=== PATIENT | female | born 1965 | race Caucasian/White ===

== ENCOUNTER 2022-09-23 16:59 | Emergency (ER) | payer MEDICARE, MEDICAID ==
[2022-09-23] MEDS ORDERED: LORazepam 2 MG/ML SDV ONE (17:01)
[2022-09-23] MEDS ORDERED: Sodium Chloride 0.9% 2.5 ML Syringe FLUSH PRN (17:08)
[2022-09-23] MEDS ORDERED: Ondansetron 4 MG/2 ML SDV ONE (17:08)
[2022-09-23] MEDS ORDERED: Sodium Chloride 0.9% 1,000 ML IV ONE (17:08)
[2022-09-23] MEDS ORDERED: Ondansetron 4 MG/2 ML SDV IVPUSH ONE ×2 (17:08→18:05)
[2022-09-23] MEDS ORDERED: Sodium Chloride 0.9% 10 ML Syringe FLUSH PRN (17:08)
[2022-09-23] MEDS ORDERED: LORazepam 2 MG/ML SDV IVPUSH STA (17:14)
[2022-09-23 17:53] LABS: BLOOD UREA NITROGEN,BUN 14 mg/dL (7.0-18.0); CARBON DIOXIDE,CO2 11.5 mmol/L (21.0-32.0); CHLORIDE,CL 105 mmol/L (98-107); GLUCOSE RANDOM 171 mg/dL (74-106); POTASSIUM,K 3.7 mmol/L (3.5-5.1); SODIUM,NA 141 mmol/L (136-145)
[2022-09-23 17:58] LABS: ESTIMATED GFR 52 mL/min (>60)
[2022-09-23] MEDS ORDERED: Pantoprazole 40 MG in Sodium Chloride 0.9% 10 ML IVPUSH ONE (18:23)
[2022-09-23] MEDS ORDERED: Scopolamine 1.5 MG Transdermal Patch TRDERM STA (19:52)
[2022-09-23] MEDS ORDERED: Scopolamine 1.5 MG Transdermal Patch ONE (19:55)
[2022-09-23 19:57] LABS: CORONAVIRUS COVID-19 NAA NEGATIVE (NEGATIVE); INFLUENZA A NAA NEGATIVE (NEGATIVE); INFLUENZA B NAA NEGATIVE (NEGATIVE); RESPIRATORY SYNCYTIAL VIR NAA NEGATIVE (NEGATIVE)
== END 2022-09-23 20:25 ==
LOC: MW.ED 16:59
DX: G40.401 Other generalized epilepsy and epileptic syndromes, not intractable, with status epilepticus (principal); Z20.822 Contact with and (suspected) exposure to COVID-19
CPT/HCPCS: 0241U; 36415; 70450; 71045; 80053; 80175; 80177; 83735; 85025; 93005; 96361; 96374; 96375; 96376; 99285; A9270; C9113; J1953; J2060; J2405; J3490; J7030

== ENCOUNTER 2022-11-20 12:35 | Emergency (ER) | payer MEDICARE, MEDICAID ==
[2022-11-20] MEDS ORDERED: Diphtheria,Pertussis(Acell),Tetanus Vaccine 0.5 ML Syringe IM ONE (16:45)
== END 2022-11-20 18:57 | disposition home or self-care (01) ==
LOC: MW.ED 12:35
DX: S81.802A Unspecified open wound, left lower leg, initial encounter (principal); S93.401A Sprain of unspecified ligament of right ankle, initial encounter; Z23 Encounter for immunization; W10.8XXA Fall (on) (from) other stairs and steps, initial encounter
CPT/HCPCS: 73590-26-LT; 73590-LT; 73610-26-RT; 73610-RT; 90471; 90715; 99283-25